=== PATIENT | male | born 1950 | race African-American/Black ===

== ENCOUNTER 2023-11-28 21:18 | Emergency (ER) | payer MEDICARE, OTHER ==
[~2023-11-28] VITALS: Ht 167.6 cm; Wt 70.0 kg
[2023-11-28 21:15] VITALS: RESP 16
[2023-11-28 21:18] VITALS: O2SAT 96
[2023-11-28] MEDS ORDERED: FENTANYL 2500MCG/250ML PMX 250 ML IV ONE (22:00)
[2023-11-28] MEDS ORDERED: NOREPINEPHRINE 8 MG in DEXT 5% WATER 242 ML IV STA (22:14)
[2023-11-28] MEDS: NOREPINEPHRINE 8MG/250ML PMX 250 ML IV NR (22:29)
[2023-11-28 22:34] LABS: HEMATOCRIT. 24.4 % (42.0-52.0); HEMOGLOBIN. 7.3 g/dL (14.0-18.0); MEAN CORPUSCULAR HGB CONC 29.9 g/dL (31.0-37.0); MEAN CORPUSCULAR VOLUME 100.4 fL (80.0-94.0); MEAN PLATELET VOLUME 7.3 fl (7.4-10.4); PLATELET 344 x1000/uL (130-400); RED BLOOD CELL COUNT 2.43 mill/uL (4.7-6.1); WHITE BLOOD COUNT 16.2 x1000/uL (4.5-11.0)
[2023-11-28 22:35] LABS: DIFFERENTIAL COMMENT 1
[2023-11-28 22:39] LABS: CHLORIDE 111 mEq/L (98-107); POTASSIUM 4.2 mEq/L (3.5-5.1); SODIUM 144 mEq/L (136-145)
[2023-11-28 22:40] LABS: CALCIUM 11.2 mg/dL (8.7-10.4); CARBON DIOXIDE 12 mEq/L (21-32)
[2023-11-28 22:45] LABS: CREATININE 1.7 mg/dL (0.6-1.3); GLUCOSE 66 mg/dL (70-105); UREA NITROGEN BLOOD 24 mg/dL (9-23)
[2023-11-28 22:47] LABS: ALANINE AMINOTRANSFERASE 480 IU/L (10-49); ALBUMIN 2.9 g/dL (3.2-4.8); BILIRUBIN TOTAL 0.4 mg/dL (0.1-1.0)
[2023-11-28 22:49] LABS: ANISOCYTOSIS 1+; PLATELET ESTIMATE NORMAL
[2023-11-28 22:59] LABS: ASPARTATE AMINOTRANSFERASE 1587 IU/L (<34)
[2023-11-28 23:00] LABS: PROTEIN TOTAL 5.5 g/dL (6.0-8.3)
[2023-11-28] MEDS: VANCOMYCIN 1.5GM/250ML 250 ML IV SCH (23:00)
[2023-11-28] MEDS ORDERED: CEFEPIME 2GM IN DEXT 5% 100ML IV ONE (23:00)
[2023-11-28 23:04] LABS: TROPONIN I HIGH SENSITIVITY 104 ng/L (3.0-53)
[2023-11-28 23:46] LABS: BG BASE EXCESS -20.3 mmol/L (-2.0-2.0); BG CARBOXYHEMOGLOBIN 0.3 % (0.5-1.5); BG DEOXYHEMOGLOBIN 0.5 % (0.0-5.0); BG FRACTION INSPIRED OXYGEN 60; BG HCO3 ACT 9.8 mmol/L (22.0-26.0); BG METHEMOGLOBIN 0.7 % (0.0-1.5); BG OXYGEN SATURATION 99.5 % (92.0-98.5); BG OXYHEMOGLOBIN 98.5 % (94.0-97.0); BG PCO2 40.1 mmHg (35.0-45.0); BG PH 7.006 (7.350-7.450); BG PO2 339.2 mmHg (75.0-100.0); BG SAMPLE SITE LEFT RADIAL; BG TOTAL HEMOGLOBIN 9.6 g/dL (12.0-18.0); BG VENT MODE VENT - AC
[2023-11-29] MEDS: IPRATROPIUM/ALBUTEROL 0.5-3(2.5)MG/3ML NEB HHN SCH
[2023-11-29] MEDS: CEFEPIME 2GM/100ML 100 ML IV NR
[2023-11-29] MEDS ORDERED: IPRATROPIUM/ALBUTEROL 0.5-3(2.5)MG/3ML NEB HHN PRN
[2023-11-29] MEDS: FENTANYL CITRATE/PF 2,500 MCG in SODIUM CHLORIDE 0.9% 200 ML IV NR (00:02)
[2023-11-29] MEDS: SODIUM BICARBONATE 8.4% 1 MEQ/ML 50ML SYR IV ONE (00:07)
[2023-11-29] MEDS ORDERED: SODIUM BICARBONATE 8.4% 1 MEQ/ML 50ML SYR IV NR (00:15)
[2023-11-29 00:47] LABS: TROPONIN I HIGH SENSITIVITY 590 ng/L (3.0-53)
[2023-11-29] MEDS: DEXTROSE 50% WATER 50ML SYRINGE IV ONE (00:52)
[2023-11-29 00:55] VITALS: RESP 16
[2023-11-29 01:15] VITALS: PULSE 110; RESP 16
[2023-11-29 01:36] VITALS: BP 72/39
[2023-11-29] MEDS ORDERED: MORPHINE SULFATE 2 MG/ML CPJ (NOT FOR IM USE) IV NR (02:15)
[2023-11-29] MEDS ORDERED: FENTANYL CITRATE/PF 50MCG/ML 2ML VIAL IV NR (02:15)
[2023-11-29] MEDS ORDERED: FENTANYL CITRATE/PF 1,000 MCG in SODIUM CHLORIDE 0.9% 80 ML IV PRN (02:15)
[2023-11-29] MEDS ORDERED: MORPHINE SULFATE 250 MG in DEXT 5% WATER 240 ML IV PRN (02:15)
[2023-11-29] MEDS ORDERED: LORAZEPAM 2MG/ML INJ IV PRN (02:15)
== END 2023-11-29 02:08 ==
LOC: ER 21:18 → CANBEDREQ 11-29 02:53
DX: I46.9 Cardiac arrest, cause unspecified (principal); R79.89 Other specified abnormal findings of blood chemistry; Z85.9 Personal history of malignant neoplasm, unspecified; I48.91 Unspecified atrial fibrillation; G31.89 Other specified degenerative diseases of nervous system; I67.82 Cerebral ischemia
CPT/HCPCS: 80053; 82962 ×2; 87106; 85025; 87040; 84484; 36415; 74174; 71045; 71275; 70450; 82805; 82375; 31500 ×2; 93005; 92950; 96374; 99291; 36600; 96375; J3010; J3370; J0692; J3490 ×2; J7050; Z7610 ×9; 94002; J7060